=== PATIENT | female | born 1955 | race Native Hawaiian/Other Pacific Islander ===

== ENCOUNTER 2018-05-23 06:59 | Day surgery (SDC) | payer OTHER ==
[2018-05-23 07:35] VITALS: BMI 21.9
--- NOTE | 2018-05-23 08:33 | CP.SDSHP ---
Same Day Surgery H & P - History Proposed Procedure: COLONSCOPY Pre-Op Diagnosis: SEE NOTES - Previous Medical/Surgical History Endocrine/Metabolic: Diabetes, Other Misc: Other Pain: 4.Moderate Pain - Allergies Allergies: Allergies Penicillins Allergy (Verified 05/23/18 07:34) SHORTNESS OF BREATH SHELLFISH Allergy (Uncoded 05/23/18 07:35) ITCHING - Physical Exam General Appearance: N Vital Signs: Vital Signs 05/23/18 07:42 Temperature 97 F L Pulse Rate 77 Respiratory 18 Rate Blood Pressure 125/79 O2 Sat by Pulse 99 Oximetry Mental Status: Alert & Oriented x3 Neuro: WNL Heart: Other Lungs: WNL GI: WNL - {Optional Preform as Required} Breast: WNL Abdomen: Other Rectal: Other Integument: WNL : WNL Ortho: WNL ENT: WNL - Impression Pt. Evaluated Today:Candidate for Anesthesia & Procedure: Yes - Date & Time Time: 08:34 Short Stay Discharge - Short Stay Discharge Admitting Diagnosis/Reason for Visit: DIARRHEA Disposition: HOME/ ROUTINE
[2018-05-23] MEDS ORDERED: Propofol 10 mg/ml Inj (20 ML) ONE (08:37)
[2018-05-23] MEDS ORDERED: Belladonna-Phenobarbital PO ONE (09:10)
[2018-05-23 09:17] VITALS: TEMP 97.3
[2018-05-23 09:18] VITALS: O2SAT 100
[2018-05-23 09:42] VITALS: RESP 15
[2018-05-23 10:07] VITALS: BP 132/81; PULSE 64
== END 2018-05-23 10:06 | disposition home or self-care (01) ==
LOC: C.ENDO 06:59
PROVIDERS: ATTEND Specialist
DX: D12.7 Benign neoplasm of rectosigmoid junction (principal); K64.8 Other hemorrhoids
CPT/HCPCS: 45380; 88305; J2001; J2704

== ENCOUNTER 2018-10-12 08:35 | Day surgery (SDC) | payer OTHER ==
[2018-10-12 09:28] VITALS: BMI 23.9
--- NOTE | 2018-10-12 10:14 | CP.SDSHP ---
Same Day Surgery H & P - History Proposed Procedure: EGD Pre-Op Diagnosis: SWEE NOTES - Previous Medical/Surgical History Endocrine/Metabolic: Diabetes, Other Misc: Other Pain: 4.Moderate Pain - Allergies Allergies: Allergies Penicillins Allergy (Intermediate, Verified 10/12/18 09:26) SHORTNESS OF BREATH UNCONTROLLABLE SHAKING shellfish derived Allergy (Intermediate, Verified 10/12/18 09:27) RASH - Physical Exam General Appearance: N Vital Signs: Vital Signs 10/12/18 09:47 Temperature 97.7 F Pulse Rate 64 Respiratory 20 Rate Blood Pressure 124/64 O2 Sat by Pulse 98 Oximetry Mental Status: Alert & Oriented x3 Neuro: WNL Heart: WNL Lungs: WNL GI: Other - {Optional Preform as Required} Breast: WNL Abdomen: Other Rectal: Other Integument: WNL : WNL Ortho: Other ENT: WNL - Impression Pt. Evaluated Today:Candidate for Anesthesia & Procedure: Yes - Date & Time Time: 10:15 Short Stay Discharge - Short Stay Discharge Admitting Diagnosis/Reason for Visit: DYSPEPSIA Disposition: HOME/ ROUTINE
[2018-10-12] MEDS ORDERED: Belladonna-Phenobarbital PO STA (10:17)
[2018-10-12] MEDS ORDERED: Propofol 10 mg/ml Inj (20 ML) ONE (10:18)
[2018-10-12] MEDS ORDERED: Lidocaine Hydrochloride 5 ML INJ ONE (10:19)
[2018-10-12 10:41] VITALS: TEMP 97.8; O2SAT 100
[2018-10-12 11:18] VITALS: BP 141/78; PULSE 58; RESP 18
== END 2018-10-12 11:20 | disposition home or self-care (01) ==
LOC: C.ENDO 08:35
PROVIDERS: ATTEND Specialist
DX: K30 Functional dyspepsia (principal); R10.84 Generalized abdominal pain; R11.2 Nausea with vomiting, unspecified; B96.81 Helicobacter pylori [H. pylori] as the cause of diseases classified elsewhere; E11.9 Type 2 diabetes mellitus without complications; K44.9 Diaphragmatic hernia without obstruction or gangrene; Z88.0 Allergy status to penicillin
CPT/HCPCS: 43239; 82948; 88305; J2704